=== PATIENT | female | born 1980 | race African-American/Black ===

== ENCOUNTER 2016-12-15 21:14 | Emergency (ER) | payer SELFPAY ==
[~2016-12-15 21:14] MED LIST: NUIRONCAP PO
[2016-12-15 22:09] LABS: BASOPHILS 0.1 %; BASOPHILS ABSOLUTE 0.01 10/3/uL (0.0-0.16); EOSINOPHILS 2.1 %; EOSINOPHILS ABSOLUTE 0.17 10/3/uL (0.0-0.53); ER CBC TAT 0 Hrs 11 Mins; HEMOGLOBIN 10.4 g/dL (12.0-16.0); IMMATURE GRANULOCYTES 0.1 %; IMMATURE GRANULOCYTES ABSOLUTE 0.01 10/3/uL (0.0-0.11); LYMPHOCYTES 32.8 %; LYMPHOCYTES ABSOLUTE 2.63 10/3/uL (0.67-4.30); MEAN CORPUS HGB CONC 30.8 g/dL (32.0-36.0); MEAN PLATELET VOLUME 10.5 fL (9.2-13.0); MONOCYTES 5.9 %; MONOCYTES ABSOLUTE 0.47 10/3/uL (0.21-1.20); NEUTROPHILS ABSOLUTE 4.72 10/3/uL (2.02-8.40); PLATELET COUNT 257 10/3/uL (150-400); RBC DISTRIBUTION WIDTH 15.5 % (12.0-16.0); RED CELL COUNT 4.16 10/6/uL (4.0-5.6)
[2016-12-15 22:11] LABS: HEMATOCRIT 33.8 % (36.0-48.0); MANUAL DIFF NO %; MEAN CORPUSCULAR VOLUME 81.3 fL (80-100)
[2016-12-15 22:21] LABS: ASCORBIC ACID (UR NOT ORDER) NEG (NEG); BILIRUBIN, URINE NEGATIVE (NEG); ER URINALYSIS TAT 0 Hrs 23 Mins; KETONE, URINE NEGATIVE (NEG); LEUKOCYTE ESTERASE(NOT OR NEG (NEG); NITRITE (URINE) NEG (NEG); WBC (NOT ORDERED) (RFLEX) 1 (0-5)
[2016-12-15 22:27] LABS: A/G RATIO 0.9 (0.7-1.9); ALBUMIN 3.8 G/DL (3.5-5.0); ALKALINE PHOSPHATASE 51 U/L (45-117); CALCIUM, SERUM 8.6 MG/DL (8.5-10.4); CHLORIDE, SERUM 109 MMOL/L (96-112); CO2 (CARBON DIOXIDE) 25 MMOL/L (24-34); CREATININE 0.53 MG/DL (0.55-1.02); GFR AFRICAN AMERICAN 142 ML/MIN (>=60); GFR NON AFRICAN AMERICAN 122 ML/MIN (>=60); GLOBULIN 4.3 G/DL (2.5-4.1); GLUCOSE, SERUM 93 MG/DL (60-99); POTASSIUM, SERUM 3.7 MMOL/L (3.5-5.3); SGOT(AST) 19 U/L (5-40); SGPT(ALT) 24 U/L (5-65); SODIUM, SERUM 141 MMOL/L (135-148); TOTAL BILIRUBIN 0.3 MG/DL (0-1.2); TOTAL PROTEIN 8.1 G/DL (6.0-8.5)
[2016-12-15 22:28] LABS: BUN (BLOOD UREA NITROGEN) 9 MG/DL (6-23)
== END 2016-12-16 04:09 | disposition home or self-care (01) ==
LOC: ER 21:14
PROVIDERS: Emergency Medicine
DX: R10.9 Unspecified abdominal pain (principal); D64.9 Anemia, unspecified; Z79.899 Other long term (current) drug therapy
CPT/HCPCS: 80053; 81001; 83690; 84703; 85025; 96374; 99284; A9270-GY; J1885